=== PATIENT | female | born 1980 | race Caucasian/White ===

== ENCOUNTER 2023-10-31 11:04 | Observation (INO) ==
--- NOTE | 2023-10-31 11:21 | Emergency Department Note ---
Impression & Plan Intractable nausea and vomiting ED Provider Note Name: KENTRELL HERNANDEZ Age: 43 Sex: Female Arrives Via: Walk-In Informant: Patient ED Provider: Augusto Chamorro MD Chief Complaint: Vomiting Impression: As per impressions above Medical Decision Makin-year-old female with history of bipolar and seizure disorder arrives for evaluation of intractable nausea and vomiting. She does not have a significant amount abdominal pain or tenderness palpation. She was given Compazine Benadryl fluids and was feeling initially much better however nausea vomiting return and despite Compazine and Reglan continues to have persistent nausea and dry heaves. Eventually started developing some blood in her emesis. At this point she was given IV Protonix. Most likely these are Zully-Liz tears but in the setting of inability to control nausea vomiting development of blood she will require hospitalization. Fortunately laboratory workup is unremarkable. KUB was obtained which is reassuring. The setting of no abdominal discomfort and no peritonitis by examination would hold off on CT imaging quite at this time defer to hospitalist service. Triage/Nursing Notes reviewed by Me Differential:Gastroenteritis, food borne illness, infections, appendicitis, diverticulitis, inflammatory bowel disease, obstruction, GI bleed, biliary pathology, volvulus, as well as other pathologies. Vital Signs: reviewed and remarkable for tachycardic on arrival Interventions: Compazine IV x 2, Reglan IV, Benadryl IV x 2, normal saline bolus Labs:ED labs Reviewed by me and remarkable for no significant abnormalities Imagin view KUB as per my interpretation no evidence of obvious obstruction Consults:I discussed the case with Dr. Mark Mauro hospitalist service Plan: Disposition:Hospitalization. Condition: Good History of Present Illness: 43-year-old female arrives for evaluation of nausea and vomiting. Patient notes that she has periodic episodes of severe nausea and vomiting over the last few years. She is on a weight loss medication called Zepbound. Sometimes when she gets dehydrated she gets a bad cycle and then cannot keep down any fluids and continues vomiting. Notes diffuse abdominal cramping but primarily issue is recurrent vomiting. This started this morning. No significant symptoms otherwise. No recent fevers, chills, shortness of breath, back pain, urinary symptoms, diarrhea, blood in emesis, leg swelling, rashes or other concerning signs or symptoms. No falls, trauma, injuries. This is very similar to an episode that occurred about 6 months ago. Denies previous abdominal surgeries and is not having any significant abdominal pain other than cramping when vomiting. Past Medical History:See Below Home Medications:See Below Allergies:See Below Vitals:Blood Pressure: 116/81, Pulse 116, RR 16, T 36C, O2 98% on RA Physical Exam: GENERAL: Patient is uncomfortable/dehydrated appearing and in moderate distress. Continued dry heaving. RESPIRATORY: No dyspnea. Clear to auscultation and equal bilaterally. CARDIOVASCULAR: Tachy.No murmur appreciated. GASTROINTESTINAL: Abdomen soft, non-tender, no peritonitis. EXTREMITIES: Normal motion all extremities, no cyanosis, no edema. NEUROLOGIC: Alert and oriented. No focal neurologic deficits appreciated SKIN: No rash, no jaundice, no diaphoresis. PSYCH: Appropriate GCS: 15 ED Course: Times/Reassessments: Initially noted improvement in symptoms though rapidly worsened again and eventually decision to hospitalize given persistent symptoms Augusto Chamorro MD Past Med/Surg History Problem List (Updated 11/01/23 @ 12:05 by Augusto Chamorro MD) Intractable nausea and vomiting (Acute) Bipolar disorder Seizure disorder Medical History Grand mal seizure In 2020 - on lamotrigine. Migraines Anxiety Surgical History No pertinent past surgical history Family History Other Family history non-contributory Social History Smoking Status: Former smoker Tobacco Type: Cigarettes Cigarettes Per Day: smokes marijuana quit cigerettes in 2006; Second Hand Exposure: Yes; Do You Dip or Chew Tobacco: No; Tobacco Cessation Education Requested by Patient: No Hx Alcohol Use: Yes Alcohol type: wine and hard liquor Hx Substance Use: Yes Prescribed Medications: Marijuana Last Used Substance: Hours (ago) Last Used Substance Other:: 9-4 Preferred Language: [place] Communication Ability: Effective Match Maker Required: No Beliefs That Will Affect Care: None Current Living Situation: Alone Other Information That Helps Us Care for You: No Feels Safe at Home: Yes Safety Concerns: Feels Safe At This Time Assistive Devices: None Allergies Allergies Allergy/AdvReac Type Severity Reaction Status Date / Time ondansetron [From Zofran] Allergy Severe Long QT Unverified 10/31/23 13:33 Syndrome Bactrim Allergy Unknown Unknown. Verified 10/26/12 20:56 sulfamethoxazole [Bactrim] Allergy Unknown Unknown. Verified 10/31/23 13:33 trimethoprim [Bactrim] Allergy Unknown Unknown. Verified 10/31/23 13:33 Home Meds Home Medications Medication Instructions Recorded Confirmed sertraline 100 mg tablet 200 mg PO QAM 04/18/20 10/31/23 atorvastatin 40 mg tablet 40 mg PO QAM 07/13/23 10/31/23 biotin 5,000 mcg sublingual tablet 5,000 mcg sublingual DAILY 10/31/23 10/31/23 lamotrigine 200 mg tablet 200 mg PO BID 10/31/23 10/31/23 tirzepatide (weight loss) 2.5 2.5 mg subcut WK 10/31/23 10/31/23 mg/0.5 mL subcutaneous pen injector (Zepbound) Results & Data (ED) Vital Signs Vital Signs - 24 hr 10/31/23 15:00 Pulse Rate [Right Brachial] 89 Respiratory Rate 16 Respiratory Effort / Characteristics Non-Labored Spontaneous Respiratory Depth Normal Respiratory Pattern Regular Blood Pressure [Right Arm] 121/80 Blood Pressure Mean [Right Arm] 93 Pulse Oximetry 98 Oxygen Delivery Method Room Air Laboratory Data 11/01/23 05:43 11/01/23 05:43 Lab Results 10/31/23 10/31/23 Range/Units 11:35 13:44 WBC 7.64 (4.8-10.8) K/ul RBC 4.99 (4.20-5.40) M/uL Hgb 14.6 (12.0-16.0) g/dl Hct 43.6 (37.0-47.0) % MCV 87.4 (80.0-100.0) fL MCH 29.3 (25.0-34.0) pg MCHC 33.5 (32.0-36.0) g/dL RDW Std Deviation 41.5 (36.4-46.3) fL RDW Coeff of Mohan 12.9 (11.5-14.5) % Plt Count 257 (130-400) K/uL MPV 9.0 L (9.4-12.4) fL Immature Gran % (Auto) 0.4 % Neut % (Auto) 76.5 % Lymph % (Auto) 15.8 % Blackford % (Auto) 4.7 % Eos % (Auto) 1.8 % Baso % (Auto) 0.8 % Neut # (Auto) 5.84 (1.40-6.50) K/uL Lymph # (Auto) 1.21 (1.20-3.40) K/uL Blackford # (Auto) 0.36 (0.11-0.59) K/uL Eos # (Auto) 0.14 (0.00-0.50) K/uL Baso # (Auto) 0.06 (0.00-0.20) K/uL Immature Gran # (Auto) 0.03 (0.01-0.20) K/uL Sodium 136 (136-145) mmol/L Potassium 3.5 (3.5-5.1) mmol/L Chloride 100 (98-107) mmol/L Carbon Dioxide 22 (21-32) mmol/L Anion Gap 14 H (3-11) BUN 15 (6-23) mg/dl Creatinine 0.86 (0.6-1.2) mg/dl Est Cr Clr Drug Dosing 71.3 ml/min Est GFR ( Amer) 94.6 ml/min Est GFR (Non-Af Amer) 81.6 ml/min BUN/Creatinine Ratio 17.4 (10-20) Glucose 124 H (70-99(Fasting)) mg/dl Calcium 9.8 (8.6-10.3) mg/dl Magnesium 1.8 (1.7-2.4) mg/dl Total Bilirubin 0.5 (0.2-1.0) mg/dl Direct Bilirubin 0.1 (0-0.2) mg/dl AST 12 L (13-39) U/L ALT 7 (7-52) U/L Alkaline Phosphatase 55 (34-104) U/L Total Protein 7.5 (6.0-8.3) gm/dl Albumin 4.9 (3.4-5.0) gm/dl Lipase 13 (11-82) U/L Urine Color Yellow Urine Appearance Clear (Clear) Urine pH 5.5 (4.5-7.5) Ur Specific Strawberry 1.030 (1.000-1.030) Urine Protein Trace H (Negative) Urine Glucose (UA) Negative (Negative) Urine Ketones 2+ H (Negative) Urine Blood Negative (Negative) Urine Nitrite Negative (Negative) Urine Bilirubin Negative (Negative) Urine Urobilinogen Negative (Negative) Ur Leukocyte Esterase Negative (Negative) Urine WBC (Auto) 0-5 (0-5) /hpf Urine RBC (Auto) 0-2 (0-2) /hpf U Hyaline Cast (Auto) 3-5 H (0-2) /lpf U Epithel Cells (Auto) 0-2 (0-2) /hpf Urine Bacteria (Auto) None Seen (None Seen) Urine Mucus Present A (None Prsent) Administered Medications Acetaminophen (Acetaminophen 500 Mg Tab) 1,000 mg PO Q8H PRN PRN Reason: pain/fever Stop: 12/01/23 08:35 Last Admin: 11/01/23 08:57 Dose: 1,000 mg Documented By: ALFONSO Atorvastatin Calcium (Atorvastatin 40 Mg Tab) 40 mg PO QAM [facility] Stop: 12/01/23 08:59 Last Admin: 11/01/23 08:09 Dose: 40 mg Documented By: ALFONSO Enoxaparin Sodium (Enoxaparin Inj 40 Mg/0.4 Ml Syr) 40 mg SQ Q24H [facility] Stop: 11/30/23 19:59 Last Admin: 10/31/23 20:19 Dose: 40 mg Documented By: DAVIS Promethazine HCl (Phenergan) 6.25 mg in 50.25 mls @ 201 mls/hr IV Q4H PRN PRN Reason: Nausea And Vomiting Stop: 11/30/23 18:28 Last Infusion: 11/01/23 11:57 Dose: Infused Documented By: Admin: 11/01/23 11:38 Dose: 201 mls/hr Documented By: Infusion: 10/31/23 20:37 Dose: Infused Documented By: Admin: 10/31/23 20:19 Dose: 201 mls/hr Documented By: DAVIS Pantoprazole Sodium 40 mg/ (Syringe) 10 mls @ 5 mls/min IV DAILY@1100 [facility] Stop: 12/01/23 10:59 Last Admin: 11/01/23 10:26 Dose: 5 mls/min Documented By: ALFONSO Lamotrigine (Lamotrigine 100 Mg Tab) 200 mg PO BID [facility]; Protocol Stop: 11/30/23 20:59 Last Admin: 11/01/23 08:09 Dose: 200 mg Documented By: Admin: 10/31/23 21:23 Dose: 200 mg Documented By: DAVIS Potassium Phosphate (Pot Phosphate Monobasic W/ Sod Tab) 1 tab PO QID [facility] Stop: 12/01/23 08:59 Last Admin: 11/01/23 12:00 Dose: 1 tab Documented By: Admin: 11/01/23 08:31 Dose: 1 tab Documented By: ALFONSO Sertraline HCl (Sertraline Hcl 100 Mg Tablet) 200 mg PO QAM [facility] Stop: 12/01/23 08:59 Last Admin: 11/01/23 08:10 Dose: 200 mg Documented By: ALFONSO Discontinued Medications Diphenhydramine HCl (Diphenhydramine 50 Mg/Ml Vial) 50 mg IV NOW STA Stop: 10/31/23 11:19 Last Admin: 10/31/23 11:32 Dose: 50 mg Documented By: BHAVESH Diphenhydramine HCl (Diphenhydramine 50 Mg/Ml Vial) 25 mg IV NOW STA Stop: 10/31/23 14:07 Last Admin: 10/31/23 14:23 Dose: 25 mg Documented By: BHAVESH Prochlorperazine (Compazine) 1 mls @ 1 mls/min IV ONE ONE Stop: 10/31/23 11:19 Last Admin: 10/31/23 11:31 Dose: 1 mls/min Documented By: BHAVESH Sodium Chloride (Nss) 1,000 mls @ 999 mls/hr IV .Q1H1M ONE Stop: 10/31/23 12:18 Last Infusion: 10/31/23 13:16 Dose: Infused Documented By: Admin: 10/31/23 11:32 Dose: 999 mls/hr Documented By: BHAVESH Prochlorperazine (Compazine) 1 mls @ 1 mls/min IV ONE ONE Stop: 10/31/23 12:58 Last Admin: 10/31/23 13:07 Dose: 1 mls/min Documented By: VIK Sodium Chloride (Nss) 1,000 mls @ 999 mls/hr IV .Q1H1M ONE Stop: 10/31/23 15:06 Last Infusion: 10/31/23 15:56 Dose: Infused Documented By: Admin: 10/31/23 14:31 Dose: 999 mls/hr Documented By: BHAVESH Pantoprazole Sodium 80 mg/ (Dextrose) 120 mls @ 480 mls/hr IV ONE STA Stop: 10/31/23 15:12 Last Infusion: 10/31/23 16:12 Dose: Infused Documented By: Admin: 10/31/23 15:50 Dose: 480 mls/hr Documented By: NOA Potassium Chloride/Sodium Chloride (Normal Saline W/20 Meq Kcl) 20 meq in 1,000 mls @ 125 mls/hr IV .Q8H TORO Stop: 11/01/23 10:59 Last Infusion: 11/01/23 10:18 Dose: Infused Documented By: Admin: 11/01/23 02:46 Dose: 125 mls/hr Documented By: Infusion: 11/01/23 02:46 Dose: Infused Documented By: Admin: 10/31/23 19:04 Dose: 125 mls/hr Documented By: JEVON Metoclopramide HCl (Metoclopramide Hcl Inj 5 Mg/Ml 2 Ml Vial) 5 mg IV ONE ONE Stop: 10/31/23 14:07 Last Admin: 10/31/23 14:24 Dose: 5 mg Documented By: BHAVESH Discharge Plan Visit Data Chief Complaint: Vomiting ED Provider: Augusto Chamorro Discharge Problem: Intractable nausea and vomiting Patient Disposition: Admitted As Inpatient Discharge Instructions Interventions: ED Discharge Assessment Last Done: 10/31/23 17:33
[2023-10-31] MEDS: PROCHLORPERAZINE 1 ML IV ONE ×2 (11:31→13:07)
[2023-10-31] MEDS: SODIUM CHLORIDE 0.9% 1,000 ML IV ONE ×2 (11:32→14:31)
[2023-10-31] MEDS: diphenhydrAMINE 50 MG/ML VIAL IV STA ×2 (11:32→14:23)
[2023-10-31 11:45] LABS: Basophils # (auto) 0.06 K/uL (0.00-0.20); Basophils % (auto) 0.8 %; Eosinophils # (auto) 0.14 K/uL (0.00-0.50); Eosinophils % (auto) 1.8 %; Hematocrit (blood only) 43.6 % (37.0-47.0); Hemoglobin 14.6 g/dl (12.0-16.0); Immature Granulocytes # (auto) 0.03 K/uL (0.01-0.20); Immature Granulocytes % (auto) 0.4 %; Lymphocytes # (auto) 1.21 K/uL (1.20-3.40); Lymphocytes % (auto) 15.8 %; Mean Corpuscular Hemoglobin 29.3 pg (25.0-34.0); Mean Corpuscular Hgb Conc 33.5 g/dL (32.0-36.0); Mean Corpuscular Volume 87.4 fL (80.0-100.0); Monocytes # (auto) 0.36 K/uL (0.11-0.59); Monocytes % (auto) 4.7 %; Neutrophils # (auto) 5.84 K/uL (1.40-6.50); Neutrophils % (auto) 76.5 %; Platelet Count 257 K/uL (130-400); RDW Coefficient of Variation 12.9 % (11.5-14.5); RDW Standard Deviation 41.5 fL (36.4-46.3); Red Blood Count 4.99 M/uL (4.20-5.40); White Blood Count 7.64 K/ul (4.8-10.8)
[2023-10-31 12:02] LABS: Albumin Level 4.9 gm/dl (3.4-5.0); Bilirubin Direct 0.1 mg/dl (0-0.2); Bilirubin,Total 0.5 mg/dl (0.2-1.0); Calcium 9.8 mg/dl (8.6-10.3); Magnesium 1.8 mg/dl (1.7-2.4); Potassium 3.5 mmol/L (3.5-5.1)
[2023-10-31 12:08] LABS: BUN Creatinine Ratio 17.4 (10-20); Creatinine Clr Calc Pharmacy 71.3 ml/min; Est GFR (African American) 94.6 ml/min; Est GFR (Non-African American) 81.6 ml/min; Total Protein 7.5 gm/dl (6.0-8.3)
[2023-10-31 14:03] LABS: Appearance Urine Clear (Clear); Bacteria Urine Automated None Seen (None Seen); Bilirubin Urine Negative (Negative); Blood Urine Negative (Negative); Color Urine Yellow; Epithelial Cell Urine Auto 0-2 /hpf (0-2); Glucose Urine UA Negative (Negative); Ketones Urine 2+ (Negative); Leukocyte Esterase Urine Negative (Negative); Mucus Urine Present (None Prsent); Nitrite Urine Negative (Negative); Protein Urine Trace (Negative); RBC Urine Automated 0-2 /hpf (0-2); Urobilinogen Urine Negative (Negative); WBC Urine Automated 0-5 /hpf (0-5); pH Urine 5.5 (4.5-7.5)
[2023-10-31] MEDS: METOCLOPRAMIDE HCL INJ 5 MG/ML 2 ML VIAL IV ONE (14:24)
--- OUTSIDE RECORDS SUMMARY | 2023-10-31 14:57 | External Medical Summary | Summary of Care ---
Author Name Unknown Organization [facility] Address [address] [place] [address] Phone [phone] Care Team Providers Care Exhibitions Curator Name Role Phone Wendi Espinoza Primary Care Provider Reason for Visit * Reason Comments Follow Up Encounter Details Date Type Department Care Team (Late st Contact Info) Description 09/10/2023 7:40 AM EDT Telemedicine Family [facility] [address] [facility] [place] [place] [address] Wendi Espinoza CRNP [address] [facility] [place] [address] Class 1 obesity in adult, unspecified BMI, unspecified obesity type, unspecified whether serious comorbidity present*; Seizure-like activity (HCC); Bipolar 1 disorder (HCC); Overweight (BMI 25.0-29.9) Allergies Active Allergy Reactions Criticality Noted Date Comments Bactrim 04/28/2008 Unsure of reaction Ondansetron 05/16/2023 Prolonged QT intervals documented as of this encounter (statuses as of 09/10/2023) Medications Medication Sig Dispensed Refills Start Date End Date Status hydrOXYzine HCl 25 MG Oral TabletIndications:Bip olar 1 disorder (HCC),RAISA (generalized anxiety disorder),Social anxiety disorder Take 1-2 tablets by mouth as needed for anxiety up to 3 times a day. Do not exceed 6 tablets in 24 hours. 40 Tablet 2 04/23/2022 Active Sertraline HCl 100 MG Oral Tablet (Zoloft)Indications:B ipolar 1 disorder (HCC) Take 2 Tablets by mouth in the morning. 180 Tablet 3 05/12/2023 Active Atorvastatin Calcium 40 MG Oral Tablet (Lipitor)Indications: Dyslipidemia Take 1 Tablet by mouth in the morning. 90 Tablet 1 07/05/2023 Active lamoTRIgine 200 MG Oral Tablet (LaMICtal) Take 1 Tablet by mouth in the morning and 1 Tablet before bedtime. 60 Tablet 3 07/11/2023 Active Zepbound 2.5 MG/0.5ML Subcutaneous Solution Auto-injector (Tirzepatide-Weight Management)Indication s:Class 1 obesity in adult, unspecified BMI, unspecified obesity type, unspecified whether serious comorbidity present,Overweight (BMI 25.0-29.9) Inject 2.5 mg under the skin once a week. 2 mL 3 09/10/2023 Active documented as of this encounter (statuses as of 09/10/2023) Active Problems Problem Noted Date Diagnosed Date Class 1 obesity in adult 09/10/2023 Partial symptomatic epilepsy with complex partial seizures, not intractable, without status epilepticus 06/10/2023 Obstruction of left tear duct 11/08/2022 Seizure-like activity 05/09/2020 Trapezius muscle spasm 12/24/2017 Pain of paraspinal muscle 12/24/2017 Somatic dysfunction of thoracic region 8 Presence of intrauterine contraceptive device (I UD) 10/21/2017 Bipolar 1 disorder 08/01/2017 Migraine with aura 05/26/2008 documented as of this encounter (statuses as of 09/10/2023) Resolved Problems Problem Noted Date Diagnosed Date Resolved Date Spasm of muscle 09/04/2013 05/20/2017 Gastroenteritis 01/13/2013 09/04/2013 Neck pain 05/08/2012 05/20/2017 Bronchitis 03/17/2012 05/20/2017 Adjustment disorder with depressed mood 06/28/2010 05/20/2017 Other acne 04/18/2010 05/20/2017 Acute bronchitis, complicated 12/08/2009 03/14/2011 Mood disorder 05/26/2008 08/01/2017 documented as of this encounter (statuses as of 09/10/2023) Immunizations Name Administration Dates Next Due Seasonal Influenza, PF, 6 M & above, IM , (FluLaval or Fluzone) 12/02/2017,05/20/2017 Seasonal Influenza, Split, IIV3, With Preserve, Inj 12/11/2012,12/16/2011 TDAP (age 10 and older)(Boostrix) 12/04/2013 TDAP, Age 7 and older, IM (Adacel) 04/28/2008 documented as of this encounter Social History Tobacco Use Types Packs/Day Years Used Date Smoking Tobacco: Former Cigarettes 1 7 0 06/26/1999 - 06/25/2006 Smokeless Tobacco: Never Alcohol Use Standard Drinks/Week Comments Yes 0 (1 standard drink = 0.6 oz pur e alcohol) occasional PHQ-2 Answer Date Recorded PHQ Adult Total Score 21 04/23/2022 Hunger Vital Sign Answer Date Recorded Within the past 12 months, y ou worried that your food would run out before you got the money to buy more. Never true 06/08/19 24 Within the past 12 months, t he food you bought just didn't last and you didn't have money to get more. Never true 06/08/2023 Childcare Answer Date Recorded Do you feel overwhelmed with taking care of a child, family member or friend? No 06/08/2023 Does your family need help f inding childcare? (Household - for ages 0-17 years) Not on file 06/08/2023 Clothing Answer Date Recorded Have you been unable to get clothing when it was really needed? No 06/08/2023 Is your family able to get c lothes or diapers when needed? (Household - for ages 0-17 years) Not on file 06/08/2023 Personal Safety Answer Date Recorded Do you feel unsafe or have concerns for your saf ety? No 06/08/2023 Do you have concerns for you r family's safety? (Household - for ages 0-17 years) Not on file 06/08/2023 Utilities Answer Date Recorded Do you have trouble paying y our heating, water, or electric bill? No 06/08/2023 Is your family able to pay t he heat, water, or electric bill? (Household - for ages 0-17 years) Not on file 06/08/2023 Does your family have access to good internet? (Household - for ages 0-17 years) Not on file 06/08/2023 Employment Status Answer Date Recorded Are you unemployed or without regular income? No 06/08/2023 Does the household have a re gular source of income? (Household - for ages 0-17 years) Not on file 06/08/2023 Social Connections Answer Date Recorded How often do you feel lonely or isolated from th ose around you? Often 06/08/2023 Financial Resource Strain Answer Date R ecorded Do you have any trouble payi ng for your medications, or do you think you might in the future? No 06/08/2023 Does your family have troubl e paying for medicine? (Household - for ages 0-17 years) Not on file 06/08/2023 Transportation Needs Answer Date Record ed READ ONLY Do you have troubl e getting a ride to medical visits or work? Sometimes True 06/08/2023 Does your family have a hard time getting a ride to doctors visits? (Household - for ages 0-17 years) Not on file 06/08/2023 Has lack of transportation k ept you from medical appointments, meetings, work, or from getting things needed for daily living? Check all that apply. (Adult - for ages 18 years and over) Not on file 06/08/2023 Do you (or your family) have trouble finding or paying for a ride (transportation)? (Household - for ages 0-17 years) Not on file 06/08/2023 Housing Stability Answer Date Recorded Do you currently live in a s helter or have no steady place to sleep at night? No 06/08/2023 READ ONLY Do you think you a re at risk of becoming homeless? No 06/08/2023 Does your family worry about paying for your home or becoming homeless? (Household - for ages 0-17 years) Not on file 0 06/08/2023 Are you homeless or worried that you might be in the future? (Adult - for ages 18 years and over) Not on file Are you (or your family) jake eless or worried that you might be in the future? (Household - for ages 0-17 years) Not on file Food Insecurity Answer Date Recorded Do you need food for this week? No 06/08/2023 Are you able to get enough f ood for your family? (Household - for ages 0-17 years) Not on file 06/08/2023 Does your family need food t his week? (Household - for ages 0-17 years) Not on file 06/08/2023 Do you always have enough fo od for your family? (Household - for ages 0-17 years) Not on file 06/08/2023 Sex and Gender Information Value Date Recorded Sex Assigned at Female 04/23/2022 1:45 PM EST Gender Identity Female 04/23/2022 1:45 PM EST Sexual Orientation Straight 04/23/2022 1: 45 PM EST Job Start Date Occupation Industry Not on file Not on file Not on file documented as of this encounter Progress Notes * Wendi Espinoza CRNP - 09/10/2023 7:31 AM EDT Telemed Follow up Family Medicine Visit Patient location: HOME. I was in a hospital or clinic location. After connecting through [employer],patient was verified with two unique identifiers. Patient (or authorized legal public health representative) was then informed that this was a Telemedicine visit and being conducted confidentially over secure lines. Methods to assure confidentiality were taken. Patient acknowledged consent and understanding of pr ivacy and security of the Telemedicine visit. The patient agreed to participate. CC:follow up History of Present Illness: Jovani Daley is a 43 year old female presenting for follow up of zepbound. Currently at 149.1. Tolerating zepbound without difficulty, Since June she has had no issues. She did take 1 month off- anddid gain some weight back. Mood is stable . 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 [email or web address] Tobacco Use Smoking status: Former Current packs/day: 0.00 Average packs/day: 1 pack/day for 7.0 years (7.0 ttl pk-yrs) Types: Cigarettes Start date: 06/26/1999 Quit date: 06/25/2006 Years since quittin.2 Smokeless tobacco: Never Vaping Use Vaping status: Never Used Substance and Sexual Activity Alcohol use: Yes Comment: occasional Drug use: Yes Types: Marijuana Sexual activity: Yes Partners: Male Comment: removal 02/04/2020 of IUD Other Topics Concern Not on file Social History Narrative Not on file Social Determinants of Health Financial Resource Strain: Low Risk (06/08/2023) Financial Resource Strain Do you have any trouble paying for your medications, or do you think you might in the future? (Adult - for ages 18 years and over): No Does your family have trouble paying for medicine? (Household - for ages 0-17 years): Not on file Food Insecurity: No Food Insecurity (06/08/2023) Food Insecurity Do you need food for this week? (Adult - for ages 18 years and over): No Are you able to get enough food for your family? (Household - for ages 0-17 years): Not on file Does your family need food this week? (Household - for ages 0-17 years): Not on file Do you always have enough food for your family? (Household - for ages 0-17 years): Not on file Transportation Needs: Unmet Transportation Needs (06/08/2023) Transportation Needs Do you have trouble getting a ride to medical visits or work? (Adult - for ages 18 years and over):Sometimes True Does your family have a hard time getting a ride to doctors visits? (Household - for ages 0-17 years): Not on file Has lack of transportation kept you from medical appointments, meetings, work, or from getting things needed for daily living? Check all that apply. (Adult - for ages 18 years and over): Not on file Do you (or your family) have trouble finding or paying for a ride (transportation)? (Household - for ages 0-17 years): Not on file Social Connections: Socially Isolated (06/08/2023) Social Connections How often do you feel lonely or isolated from those around you? (Adult - for ages 18 years and over): Often Housing Stability: Low Risk (06/08/2023) Housing Stability Do you currently live in a group home or have no steady place to sleep at night? (Adult - for ages 18 years and over): No Do you think you are at risk of becoming homeless? (Adult - for ages 18 years and over): No Does your family worry about paying for your home or becoming homeless? (Household - for ages 0-17 years): Not on file Are you homeless or worried that you might be in the future? (Adult - for ages 18 years and over): Not on file Are you (or your family) homeless or worried that you might be in the future? (Household - for ages0-17 years): Not on file PMH: Past Medical History: Diagnosis Date Hypoglycemia in past low/labile BS Migraine Mood disorder (HCC) bipolar Past Surgical History: Procedure Laterality Date DENTAL SURGERY PROCEDURE NEC wisdom teeth LEVONORGESTREL RELEASING IUD 13.5 MG 08/26/2017 Current Outpatient Medications Medication Sig Dispense Refill lamoTRIgine 200 MG Oral Tablet (LaMICtal) Take 1 Tablet by mouth in the morning and 1 Tablet beforebedtime. 60 Tablet 3 Atorvastatin Calcium 40 MG Oral Tablet (Lipitor) Take 1 Tablet by mouth in the morning. 90 Tablet 1 Sertraline HCl 100 MG Oral Tablet (Zoloft) Take 2 Tablets by mouth in the morning. 180 Tablet 3 hydrOXYzine HCl 25 MG Oral Tablet Take 1-2 tablets by mouth as needed for anxiety up to 3 times a day. Do not exceed 6 tablets in 24 hours. 40 Tablet 2 No current facility-administered medications for this visit. Review of patient's allergies indicates: Allergen Reactions Bactrim Unsure of reaction Zofran [Ondansetron] Prolonged QT intervals Most Recent Immunizations Administered Date(s) Administered COVID-19 mRNA, LNP-s, No Preserve, 2-Dose Series (about.me) 06/01/2020 Seasonal Influenza, PF, 6 M & above, IM , (FluLaval or Fluzone) 12/02/2017 Seasonal Influenza, Split, IIV3, With Preserve, Inj 12/11/2012 TDAP (age 10 and older)(Boostrix) 12/04/2013 TDAP, Age 7 and older, IM (Adacel) 04/28/2008 Review of Systems: Review of Systems Respiratory: Negative for shortness of breath. Cardiovascular: Negative for chest pain. Gastrointestinal: Negative for abdominal pain, diarrhea, nausea and vomiting. Neurological: Positive for seizures. Negative for dizziness and syncope. Psychiatric/Behavioral: Negative for sleep disturbance. Mood stable Physical Exam: There were no vitals taken for this visit. Physical Exam HENT: Head: Normocephalic. Pulmonary: Effort: Pulmonary effort is normal. Neurological: General: No focal deficit present. Mental Status: She is alert and oriented to person, place, and time. Psychiatric: Mood and Affect: Mood normal. Behavior: Behavior normal. Thought Content: Thought content normal. Judgment: Judgment normal. Assessment and Plan: 1. Class 1 obesity in adult, unspecified BMI, unspecified obesity type, unspecified whether seriouscomorbidity present Bmi now less than 30. Tolerating zepbound- continue 2. Seizure-like activity (HCC) Managed by neuro 3. Bipolar 1 disorder (HCC) Stable per her report I have advised the patient to call our office incase of any worsening or new symptoms. I spent a total of 20-29 minutes (exact time 20 mins) on the date of service in preparation, delivery, and documentation of the care provided to Jovani Daley excluding any time spent in the performance of separately billed services. [place], AN, RUMA [facility]'s documented in this encounter Plan of Treatment Upcoming Encounters Date Type Department Care Team (Late st Contact Info) Description 10/03/2023 8:40 AM EDT Office Visit Neurology [facility] [address] [place] [address] Blanka Vizcaino PA-C [address] [facility] [place] [address] 04/20/2024 9:30 AM EST Imaging Radiology [address] [facility] [place] [address] Health Maintenance Due Date Last Done Comments Hepatitis B Vaccine (1 of 3 - 19+ 3-dose series) 1997 HPV/Co-Test 2008 Cervical Cancer Screening 08/01/2020 Pap Smear 08/01/2020 08/01/2017, 08/2017, 01/18/2012, Additional history exists Depression Monitoring 04/23/2023 04/23/2022 Cologuard 05/28/2023 Colonoscopy 05/28/2023 Colorectal Cancer Screening 05/28/2023 Fecal Occult Blood Test 05/28/2023 Sigmoidoscopy 05/28/2023 Influenza Vaccine (FLU shot) (#1) 2023 12/02/2017, 05/20/2017, 12/11/2012, Additional history exists DTaP,Tdap,and Td Vaccines (3 - Td or Tdap) 12/05/2023 12/04/2013, 04/28/2008 Mammogram 04/17/2024 04/17/2023 Diabetes Screening 07/17/2026 07/18/2023, 0 07/18/2023, 06/10/2023, Additional history exists Lipid Panel 06/09/2028 06/10/2023, 05/01/2008 COVID-19 Vaccine Completed 12/06/2022, 08/2020, 05/11/2020 HIV Screening Discontinued HPV (Gardasil) Vaccine Aged Out No lo nger eligible based on patient's age to complete this topic Hepatitis C Screening Discontinued MENINGOCOCCAL (MENACTRA/MENVEO) Aged Out No longer eligible based on patient's age to complete this topic Pneumococcal Vaccine: Pediatrics (0 to 5 Years) and At-Risk Patients (6 to 64 Years) Aged Out No longer eligible based on patient's age to complete this topic documented as of this encounter Medical Devices Not on filedocumented as of this encounter Visit Diagnoses Diagnosis Class 1 obesity in adult, unspecified BMI, unspecified obesity type, unspecified whether serious comorbidity present- Primary Seizure-like activity (HCC) Other convulsions Bipolar 1 disorder (HCC) Bipolar I disorder, most recent episode (or current) unspecified Overweight (BMI 25.0-29.9) Overweight documented in this encounter Care Teams Exhibitions Curator Relationship Specialty Start Date End Date Wendi Espinoza CRNP [address] [place] [address] PCP - General Nurse Practitioner 09/06/23 documented as of this encounter
--- OUTSIDE RECORDS SUMMARY | 2023-10-31 14:57 | External Medical Summary ---
Author Name Unknown Address Unknown Organization [id number]:[facility] [place] [address] [place] [address] Laboratory Report Ordering Provider Test Date Status PHIL LEYVALima 07/18/2023 12:28:35 Final Observation Date Value Abnormality Reference (Units ) Status MYCODE SPECIMEN-SST 07/18/2023 12:28:35 Freezing of extracted DNA, whole blood and/or serum. Final Performing Location [facility] [place] [address] [place] [address]
--- OUTSIDE RECORDS SUMMARY | 2023-10-31 14:57 | External Medical Summary ---
Author Name Unknown Address Unknown Organization [id number][facility] [address] [place] [address] Laboratory Report Ordering Provider Test Date Status LOIS LEON 07/18/2023 12:28:35 Final Observation Date Value Abnormality Reference (Units ) Status BUN 07/18/2023 12:28:35 11 6-20 (mg/dL) Final Creatinine 07/18/2023 12:28:35 0.9 0.5-1.0 (mg/dL) Final Glomerular filtration rate/1.73 sq M.predicted [Volume Rate/Area] in Serum, Plasma or Blood by Creatinine-based formula (CKD-EPI) 07/18/2023 12:28:35 85 >=60 (mL/min) Final eGFR is calculated based on the CKD-EPI 2020 equation Sodium 07/18/2023 12:28:35 141 135-146 (m mol/L) Final Potassium 07/18/2023 12:28:35 3.7 3.5-5.1 (m mol/L) Final Cl 07/18/2023 12:28:35 100 98-107 (mm ol/L) Final CO2 07/18/2023 12:28:35 29 22-32 (mmo l/L) Final Anion gap 07/18/2023 12:28:35 12 7-15 (mmol /L) Final Glucose 07/18/2023 12:28:35 77 70-120 (mg /dL) Final Calcium 07/18/2023 12:28:35 9.7 8.4-10.2 ( mg/dL) Final Performing Location [facility] - [address] [place] [address]
--- OUTSIDE RECORDS SUMMARY | 2023-10-31 14:57 | External Medical Summary | Summary of Care ---
Author Name Unknown Organization [facility] Address [address] [place] [address] Phone [phone] Care Team Providers Care Dimension Quarry Supervisor Name Role Phone Wale Collier DO Primary Care Provider Reason for Visit * Reason Comments Emergency Department Follow-Up 07/12 er V ISIT DEHYDRATION, FROM ZEPBOUND. STOPPED MED.CT FOUND CYST ON KIDNEY, SO NOT SURE IF SHE NEEDS TO FOLLOW UP TO THAT. Encounter Details Date Type Department Care Team (Late st Contact Info) Description 07/18/2023 10:40 AM EDT Office Visit Family Practice [facility] [address] [place] [address] Wendi Espinoza CRNP [address] [place] [address] Cyst of right kidney*; Urinary frequency; Hypokalemia; Leukocytosis, unspecified type; Nausea and vomiting, unspecified vomiting type Allergies Active Allergy Reactions Criticality Noted Date Comments Bactrim 04/28/2008 Unsure of reaction Ondansetron 05/16/2023 Prolonged QT intervals documented as of this encounter (statuses as of 07/18/2023) Medications Medication Sig Dispensed Refills Start Date End Date Status hydrOXYzine HCl 25 MG Oral TabletIndications: Bipolar 1 disorder (HCC),RAISA (generalized anxiety disorder),Social anxiety disorder Take 1-2 tablets by mouth as needed for anxiety up to 3 times a day. Do not exceed 6 tablets in 24 hours. 40 Tablet 2 04/23/2022 Active Zepbound 2.5 MG/0.5ML Subcutaneous Solution Auto-injector (Tirzepatide-Weigh t Management)Indicat ions:Overweight (BMI 25.0-29.9) Inject 2.5 mg under the skin once a week. 2 mL 3 04/17/2023 Active Additional Information Patient not taking.Reported on 07/18/2023 Sertraline HCl 100 MG Oral Tablet (Zoloft)Indication s:Bipolar 1 disorder (HCC) Take 2 Tablets by mouth in the morning. 180 Tablet 3 05/12/2023 Active Atorvastatin Calcium 40 MG Oral Tablet (Lipitor)Indicatio ns:Dyslipidemia Take 1 Tablet by mouth in the morning. 90 Tablet 1 07/05/2023 Active lamoTRIgine 200 MG Oral Tablet (LaMICtal) Take 1 Tablet by mouth in the morning and 1 Tablet before bedtime. 60 Tablet 3 07/11/2023 Active lamoTRIgine 200 MG Oral Tablet (LaMICtal) TAKE 1.5 TABLET BY MOUTH TWICE A DAY 180 Tablet 1 06/27/2023 4 Discontinue d(Medicatio n List Clean Up) lamoTRIgine 100 MG Oral Tablet (LaMICtal) Take 1 Tablet by mouth in the morning and 1 Tablet before bedtime. 60 Tablet 3 07/11/2023 4 Discontinue d(Medicatio n List Clean Up) documented as of this encounter (statuses as of 07/18/2023) Active Problems Problem Noted Date Diagnosed Date Partial symptomatic epilepsy with complex partial seizures, not intractable, without status epilepticus 06/10/2023 Obstruction of left tear duct 11/08/2022 Seizure-like activity 05/09/2020 Trapezius muscle spasm 12/24/2017 Pain of paraspinal muscle 12/24/2017 Somatic dysfunction of thoracic region 8 Presence of intrauterine contraceptive device (I UD) 10/21/2017 Bipolar 1 disorder 08/01/2017 Migraine with aura 05/26/2008 documented as of this encounter (statuses as of 07/18/2023) Resolved Problems Problem Noted Date Diagnosed Date Resolved Date Spasm of muscle 09/04/2013 05/20/2017 Gastroenteritis 01/13/2013 09/04/2013 Neck pain 05/08/2012 05/20/2017 Bronchitis 03/17/2012 05/20/2017 Adjustment disorder with depressed mood 06/28/2010 05/20/2017 Other acne 04/18/2010 05/20/2017 Acute bronchitis, complicated 12/08/2009 03/14/2011 Mood disorder 05/26/2008 08/01/2017 documented as of this encounter (statuses as of 07/18/2023) Immunizations Name Administration Dates Next Due Seasonal Influenza, PF, 6 M & above, IM , (FluLaval or Fluzone) 12/02/2017,05/20/2017 Seasonal Influenza, Split, IIV3, With Preserve, Inj 12/11/2012,12/16/2011 TDAP (age 10 and older)(Boostrix) 12/04/2013 TDAP (age 11 and older)(Adacel) 04/28/2008 documented as of this encounter Social [...] money to get more. Never true 06/08/2023 Sex and Gender Information Value Date Recorded Sex Assigned at Female 04/23/2022 1:45 PM EST Gender Identity Female 04/23/2022 1:45 PM EST Sexual Orientation Straight 04/23/2022 1: 45 PM EST Job Start Date Occupation Industry Not on file Not on file Not on file documented as of this encounter Last Filed Vital Signs Vital Sign Reading Time Taken Comments Blood Pressure 102/60 07/18/2023 10:34 AM EDT Pulse 89 07/18/2023 10:34 AM EDT Temperature - - Respiratory Rate - - Oxygen Saturation - - Inhaled Oxygen Concentration - - Weight 70 kg (154 lb 5 oz) 07/18/2023 10:34 AM E DT Height - - Body Mass Index 27.34 04/17/2023 8:52 AM EST documented in this encounter Progress Notes * Wendi Espinoza, RUMA - 07/18/2023 10:37 AM EDT Follow up Family Medicine Visit CC: Chief Complaint Patient presents with Emergency Department Follow-Up 07/12 er VISIT DEHYDRATION, FROM ZEPBOUND. STOPPED MED. CT FOUND CYST ON KIDNEY, SO NOT SURE IF SHE NEEDS TO FOLLOW UP TO THAT. History of Present Illness: Jovani Daley is a 43 year old female presenting FOR er FOLLOW UP. She was seen at [facility] on 07/13/2023 She was seen for nausea and vomiting. She associated with zepbound so she stopped and felt fine since then. Tolerating PO intake, No further symptoms Incidental kidney cyst noted. 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 [email or web address] Tobacco Use Smoking status: Former Current packs/day: 0.00 Average packs/day: 1 pack/day for 7.0 years (7.0 ttl pk-yrs) Types: Cigarettes Start date: 06/26/1999 Quit date: 06/25/2006 Years since quittin.0 Smokeless tobacco: Never Vaping Use Vaping status: Never Used Substance and Sexual Activity Alcohol use: Yes Comment: occasional Drug use: Yes Types: Marijuana Sexual activity: Yes Partners: Male Comment: removal 02/04/2020 of IUD Other Topics Concern Not on file Social History Narrative Not on file Social Determinants of Health Financial Resource Strain: Not on file Food Insecurity: No Food Insecurity (06/08/2023) Hunger Vital Sign Worried About Running Out of Food in the Last Year: Never true Ran Out of Food in the Last Year: Never true Transportation Needs: Not on file Physical Activity: Not on file Stress: Not on file Social Connections: Not on file Intimate Partner Violence: Not on file Housing Stability: Not on file PMH: Past Medical History: [...] tablets in 24 hours. 40 Tablet 2 Zepbound 2.5 MG/0.5ML Subcutaneous Solution Auto-injector (Tirzepatide-Weight Management) Inject 2.5 mg under the skin once a week. (Patient not taking: Reported on 07/18/2023) 2 mL 3 No current facility-administered medications for this visit. Review of patient's allergies indicates: Allergen Reactions Bactrim Unsure of reaction Zofran [Ondansetron] Prolonged QT intervals Most Recent Immunizations Administered Date(s) Administered COVID-19 mRNA, LNP-s, No Preserve, 2-Dose Series (Mister Spex) 06/01/2020 Seasonal Influenza, PF, 6 M & above, IM , (FluLaval or Fluzone) 12/02/2017 Seasonal Influenza, Split, IIV3, With Preserve, Inj 12/11/2012 TDAP (age 10 and older)(Boostrix) 12/04/2013 TDAP (age 11 and older)(Adacel) 04/28/2008 Review of Systems: Review of Systems Constitutional: Negative for chills, diaphoresis, fatigue and fever. Respiratory: Negative for shortness of breath. Cardiovascular: Negative for chest pain. Gastrointestinal: Positive for diarrhea, nausea and vomiting. Now resolved Physical Exam: BP 102/60 | Pulse 89 | Wt 70 kg (154 lb 5 oz) | BMI 27.34 kg/m | BSA 1.76 m Physical Exam HENT: Head: Normocephalic. Cardiovascular: Rate and Rhythm: Normal rate and regular rhythm. Pulmonary: Effort: Pulmonary effort is normal. Abdominal: Palpations: Abdomen is soft. Tenderness: There is no abdominal tenderness. Neurological: General: No focal deficit present. Mental Status: She is alert and oriented to person, place, and time. Psychiatric: Mood and Affect: Mood normal. Behavior: Behavior normal. Thought Content: Thought content normal. Judgment: Judgment normal. Assessment and Plan: 1. Cyst of right kidney Noted on CT in ED Check ultrasound - US RENAL; Future 2. Urinary frequency Ongoing for months Recent urine in ed normal. - US RENAL; Future - HEMOGLOBIN A1C; Future 3. Hypokalemia recheck - BASIC METABOLIC PANEL; Future 4. Leukocytosis, unspecified type recheck - CBC WITH WBC DIFFERENTIAL; Future 5. Nausea and vomiting, unspecified vomiting type RESOLVED NOW SUSPECTED VIRAL GASTROENTERITIS PATIENT TOOK ZEPBOUND 6 DAYS BEFORE AND HAD NO ISSUES SHE IS HOLDING ZEPBOUND FOR NOW I have advised the patient to call our office incase of any worsening or new symptoms. I spent a total of 30-39 minutes (exact time 30 mins) on the date of service in preparation, delivery, and documentation of the care provided to Jovani Daley excluding any time spent in the performance of separately billed services. AN Mera, RUMA [facility] Family Medicine documented in this encounter Plan of Treatment Upcoming Encounters Date Type Department Care Team (Late st Contact Info) Description 07/18/2023 12:00 PM EDT Imaging Radiology [address] [place] [address] 08/05/2023 12:30 PM EDT NeuroDiagnostic Study Neurophysiology [facility] [place] [address] [place] [address] [address] Sp, Neurophys Tech [address] [place] [address] [address] 08/08/2023 9:00 AM EDT NeuroDiagnostic Study Neurophysiology [facility] [place] [address] [place] [address] [address] Sp, Neurophys Tech [address] [place] [address] [address] 08/20/2023 11:40 AM EDT Office Visit Nutrition & Weight Management, [facility] [place] [address] Sheridan Davison PA-C [address] [place] [address] 10/03/2023 8:40 AM EDT Office Visit Neurology [facility] [address] [place] [address] Blanka Vizcaino PA-C [address] [place] [address] 04/20/2024 9:30 AM EST Imaging Radiology [address] [place] [address] Scheduled Orders Name Type Priority Associated Diagnoses Orde r Schedule US RENAL Medical Imaging Routine Cyst of right kidney Urinary frequency Expected: 07/18/2023, Expires: 08/17/2024 CBC WITH WBC DIFFERENTIAL Lab Routine Leukocytosis, unspecified type Expected: 07/18/2023, Expires: 08/17/2024 BASIC METABOLIC PANEL Lab Routine Hypokalemia Expected: 07/18/2023 (Approximate), Expires: 07/17/2024 HEMOGLOBIN A1C Lab Routine Urinary frequency Expected: 07/18/2023 (Approximate), Expires: 07/17/2024 Health Maintenance Due Date Last Done Comments Hepatitis B (1 of 3 - 19+ 3-dose series) 1997 HPV/Co-Test 2008 Cervical Cancer Screening 08/01/2020 Pap Smear 08/01/2020 08/01/2017, 08/2017, 01/18/2012, Additional history exists Depression, Most Recent Score >= 10 (will fire each visit until score < 10) 04/24/2022 04/23/2022 COVID-19 Vaccine ( season) 2022 06/01/2020, 05/11/2020 Cologuard 05/28/2023 Colonoscopy 05/28/2023 Colorectal Cancer Screening 05/28/2023 Fecal Occult Blood Test 05/28/2023 Sigmoidoscopy 05/28/2023 Influenza Vaccine (FLU shot) (Season Ended) 2023 12/02/2017, 05/20/2017, 12/11/2012, Additional history exists DTaP,Tdap,and Td Vaccines (3 - Td or Tdap) 12/05/2023 12/04/2013, 04/28/2008 Mammogram 04/17/2024 04/17/2023 Diabetes Screening 06/09/2026 06/10/2023, 0 05/20/2017, 06/17/2014, Additional history exists Lipid Panel 06/09/2028 06/10/2023, 05/01/2008 GARDASIL-HPV IMMUNIZATION SERIES Aged Out No longer eligible based on patient's age to complete this topic HIV Screening Discontinued Hepatitis C Screening Discontinued MENINGOCOCCAL (MENACTRA/MENVEO) Aged Out No longer eligible based on patient's age to complete this topic Pneumococcal Vaccine: Pediatrics (0 to 5 Years) and At-Risk Patients (6 to 64 Years) Aged Out No longer eligible based on patient's age to complete this topic documented as of this encounter Medical Devices Not on filedocumented as of this encounter Visit Diagnoses Diagnosis Cyst of right kidney- Primary Unspecified congenital cystic kidney disease Urinary frequency Hypokalemia Hypopotassemia Leukocytosis, unspecified type Nausea and vomiting, unspecified vomiting type documented in this encounter Care Teams Dimension Quarry Supervisor Relationship Specialty Start Date End Date Wale Collier DO [address] [place] [address] PCP - General Family Medicine 10/21/17 documented as of this encounter"
--- OUTSIDE RECORDS SUMMARY | 2023-10-31 14:57 | External Medical Summary | Summary of Care ---
Author Name Unknown Organization [facility] Address [address] [place] [address] Phone [phone] Care Team Providers Care Aircraft Tool Maker Name Role Phone Nando Wale Sainzfatoumata Primary Care Provider Encounter Details Date Type Department Care Team (Late st Contact Info) Description 07/15/2023 Orders Only Outcomes Research Department [address] [place] [address] Haylee River [employer]RA [employer] Other*[id number] Allergies Active Allergy Reactions Criticality Noted Date Comments Bactrim 04/28/2008 Unsure of reaction Ondansetron 05/16/2023 Prolonged QT intervals documented as of this encounter (statuses as of 07/15/2023) Medications Medication Sig Dispensed Refills Start Date End Date Status hydrOXYzine HCl 25 MG Oral TabletIndications:Bip olar 1 disorder (HCC),RAISA (generalized anxiety disorder),Social anxiety disorder Take 1-2 tablets by mouth as needed for anxiety up to 3 times a day. Do not exceed 6 tablets in 24 hours. 40 Tablet 2 04/23/2022 Active Zepbound 2.5 MG/0.5ML Subcutaneous Solution Auto-injector (Tirzepatide-Weight Management)Indication s:Overweight (BMI 25.0-29.9) Inject 2.5 mg under the skin once a week. 2 mL 3 04/17/2023 Active Sertraline HCl 100 MG Oral Tablet (Zoloft)Indications:B ipolar 1 disorder (HCC) Take 2 Tablets by mouth in the morning. 180 Tablet 3 05/12/2023 Active lamoTRIgine 200 MG Oral Tablet (LaMICtal) TAKE 1.5 TABLET BY MOUTH TWICE A DAY 180 Tablet 1 06/27/2023 Active Atorvastatin Calcium 40 MG Oral Tablet (Lipitor)Indications: Dyslipidemia Take 1 Tablet by mouth in the morning. 90 Tablet 1 07/05/2023 Active lamoTRIgine 200 MG Oral Tablet (LaMICtal) Take 1 Tablet by mouth in the morning and 1 Tablet before bedtime. 60 Tablet 3 07/11/2023 Active lamoTRIgine 100 MG Oral Tablet (LaMICtal) Take 1 Tablet by mouth in the morning and 1 Tablet before bedtime. 60 Tablet 3 07/11/2023 Active documented as of this encounter (statuses as of 07/15/2023) Active Problems Problem Noted Date Diagnosed Date [...] as of this encounter (statuses as of 07/15/2023) Resolved Problems Problem Noted Date Diagnosed Date Resolved Date Spasm of muscle 09/04/2013 05/20/2017 Gastroenteritis 01/13/2013 09/04/2013 Neck pain 05/08/2012 05/20/2017 Bronchitis 03/17/2012 05/20/2017 Adjustment disorder with depressed mood 06/28/2010 05/20/2017 Other acne 04/18/2010 05/20/2017 Acute bronchitis, complicated 12/08/2009 03/14/2011 Mood disorder 05/26/2008 08/01/2017 documented as of this encounter (statuses as of 07/15/2023) Immunizations Name Administration Dates Next Due Seasonal [...] on file documented as of this encounter Plan of Treatment Upcoming Encounters Date Type Department Care Team (Late st Contact Info) Description 08/05/2023 12:30 PM EDT NeuroDiagnostic Study Neurophysiology [facility] [address] [place] [address] Sp, Neurophys Tech [address] [place] [address] 08/08/2023 9:00 AM EDT NeuroDiagnostic Study Neurophysiology [facility] [address] [place] [address] Sp, Neurophys Tech [address] [place] [address] 08/20/2023 11:40 AM EDT Office Visit Nutrition & Weight Management, [facility] [address] [place] [address] Sheridan Davison PA-C [address] [place] [address] 10/03/2023 8:40 AM EDT Office Visit Neurology [facility] [address] [place] [address] Blanka Vizcaino PA-C [address] [place] [address] 04/20/2024 9:30 AM EST Imaging Radiology [facility] [address] [facility] [address] [place] [address] Scheduled Orders Name Type Priority Associated Diagnoses Orde r Schedule MYCODE SUBSEQUENT ADULT Lab Routine [employer] Other*[id number] Every 6 Months for 2 Occurrences starting 07/15/2023 until 08/03/2024 Health Maintenance Due Date Last Done Comments [...] as of this encounter Visit Diagnoses Diagnosis [employer] Other*[id number] documented in this encounter Care Teams Aircraft Tool Maker Relationship Specialty Start Date End Date Wale Collier DO [address] [place] [address] PCP - General Family Medicine 10/21/17 documented as of this encounter
--- OUTSIDE RECORDS SUMMARY | 2023-10-31 14:57 | External Medical Summary ---
Author Name Unknown Address Unknown Organization [id number]:LAB[facility]ATORY [facility] - [address] [place] [address] Laboratory Report Ordering Provider Test Date Status LOIS LEON 07/18/2023 12:28:35 Final Observation Date Value Abnormality Reference (Units ) Status SYNC LEUKOCYTES IN BLOOD BY AUTOMATED COUNT 07/18/2023 12:28:35 7.02 4.00-10.80 (K/uL) Final Segs 07/18/2023 12:28:35 61.1 40.0-75.0 (%) Final Lymphs % 07/18/2023 12:28:35 25.5 18.0-42.0 (%) Final Monos 07/18/2023 12:28:35 6.8 1.0-11.0 (%) Final Eosinophils 07/18/2023 12:28:35 6.0 0.0-6.0 (%) Final Basos 07/18/2023 12:28:35 0.6 0.0-2.0 (%) Final Absolute Segs 07/18/2023 12:28:35 4.29 1.80-7.70 (K/uL) Final Lymphs, absolute 07/18/2023 12:28:35 1.79 1.00-4.80 (K/ul) Final Monos, Abs 07/18/2023 12:28:35 0.48 0.00-1.10 (K/uL) Final Eos, Abs 07/18/2023 12:28:35 0.42 0.00-0.70 (K/uL) Final Basos, Abs 07/18/2023 12:28:35 0.04 0.00-0.20 (K/uL) Final [facility] Location [facility] [address] [place] [address]
--- OUTSIDE RECORDS SUMMARY | 2023-10-31 14:57 | External Medical Summary ---
Author Name Unknown Address Unknown Organization [id number]:LABORATORY [facility] - [address] [place] [address] Laboratory Report Ordering Provider Test Date Status PHIL LEYVALima 07/18/2023 12:28:35 Final Observation Date Value Abnormality Reference (Units ) Status MYCODE SPECIMEN-SST 07/18/2023 12:28:35 Freezing of extracted DNA, whole blood and/or serum. Final Performing Location LABORATORY [facility] - [address] [place] [address]
--- OUTSIDE RECORDS SUMMARY | 2023-10-31 14:57 | External Medical Summary | Summary of Care ---
Author Name Unknown Organization [facility] Address [address] [place] [address] Phone [phone] Care Team Providers Care Public Employment Mediator Name Role Phone Wale Collier DO Primary Care Provider Reason for Visit * Reason Comments Outpatient Testing Encounter Details Date Type Department Care Team (Late st Contact Info) Description 07/18/2023 12:50 PM EDT Laboratory Laboratory, [facility] [address] [place] [address] [facility] [address] [place] [address] [employer] Other*[id number]; Leukocytosis, unspecified type; Hypokalemia; Urinary frequency Allergies Active Allergy Reactions Criticality Noted Date Comments Bactrim 04/28/2008 Unsure of reaction Ondansetron 05/16/2023 Prolonged QT intervals documented as of this encounter (statuses as of 07/18/2023) Medications Medication Sig Dispensed Refills Start Date End Date Status hydrOXYzine HCl 25 MG Oral TabletIndications:B ipolar 1 disorder (HCC),RAISA (generalized anxiety disorder),Social anxiety disorder Take 1-2 tablets by mouth as needed for anxiety up to 3 times a day. Do not exceed 6 tablets in 24 hours. 40 Tablet 2 04/23/2022 Active Zepbound 2.5 MG/0.5ML Subcutaneous Solution Auto-injector (Tirzepatide-Weight Management)Indicati ons:Overweight (BMI 25.0-29.9) Inject 2.5 mg under the skin once a week. 2 mL 3 04/17/2023 Active Additional Information Patient not taking.Reported on 07/18/2023 Sertraline HCl 100 MG Oral Tablet (Zoloft)Indications :Bipolar 1 disorder (HCC) Take 2 Tablets by mouth in the morning. 180 Tablet 3 05/12/2023 Active Atorvastatin Calcium 40 MG Oral Tablet (Lipitor)Indication s:Dyslipidemia Take 1 Tablet by mouth in the [...] 08/05/2023 12:30 PM EDT NeuroDiagnostic Study Neurophysiology [facility] [address] [place] [address] Sp, Neurophys Tech [address] [place] [address] 08/08/2023 9:00 AM EDT NeuroDiagnostic Study Neurophysiology [facility] [address] [place] [address] Sp, Neurophys Tech [address] [place] [address] 08/20/2023 11:40 AM EDT Office Visit Nutrition & Weight Management, [facility] [address] [place] [address] Sheridan Davison PA-C [address] [place] [address] 10/03/2023 8:40 AM EDT Office Visit Neurology [facility] [address] [place] [address] Blanka Vizcaino PA-C [address] [place] [address] 04/20/2024 9:30 AM EST Imaging Radiology [facility]st [facility] [place] [address] [facility] [place] [address] Pending Results Name Type Priority Associated Diagnoses Date /Time MYCODE SUBSEQUENT ADULT Lab Routine [employer] Other*[id number] 07/18/2023 12:28 PM EDT CBC WITH WBC DIFFERENTIAL Lab Routine Leukocytosis, unspecified type 07/18/2023 12:28 PM EDT BASIC METABOLIC PANEL Lab Routine Hypokalemia 07/18/2023 12:28 PM EDT HEMOGLOBIN A1C Lab Routine Urinary frequency 07/18/2023 12:28 PM EDT MYCODE SST1 Lab Routine [employer] Other*[id number] 07/18/2023 12:28 PM EDT MYCODE SST2 Lab Routine [employer] Other*[id number] 07/18/2023 12:28 PM EDT CBC Lab Routine Leukocytosis, unspecified type 07/18/2023 12:28 PM EDT DIFFERENTIAL, AUTOMATED Lab Routine Leukocytosis, unspecified type 07/18/2023 12:28 PM EDT Health Maintenance Due Date Last Done Comments Hepatitis B (1 of 3 - 19+ 3-dose series) 1997 HPV/Co-Test 2008 Cervical Cancer Screening 08/01/2020 Pap Smear 08/01/2020 08/01/2017, 08/2017, 01/18/2012, Additional history exists Depression, Most Recent Score >= 10 (will fire each visit until score < 10) 04/24/2022 04/23/2022 COVID-19 Vaccine ( season) 2022 12/06/2022, 06/01/2020, 05/11/2020 Cologuard 05/28/2023 Colonoscopy 05/28/2023 Colorectal [...] this encounter Visit Diagnoses Diagnosis [employer] Other*[id number] Leukocytosis, unspecified type Hypokalemia Hypopotassemia Urinary frequency documented in this encounter Care Teams Public Employment Mediator Relationship Specialty Start Date End Date Wale Collier DO [address] [place] [address] PCP - General Family Medicine 10/21/17 documented as of this encounter
--- OUTSIDE RECORDS SUMMARY | 2023-10-31 14:57 | External Medical Summary ---
Author Name Unknown Address Unknown Organization K01:LAB[facility]ATORY [facility] - [address] [place] [address] Laboratory Report Ordering Provider Test Date Status LOIS LEON 07/18/2023 12:28:35 Final Observation Date Value Abnormality Reference (Units ) Status HbA1C 07/18/2023 12:28:35 5.1 4.0-5.6 (% ) Final The use of HbA1c to monitor glycemic status is based on normal hemoglobin and HbA composition. This test should not be used in patients with abnormal hemoglobin that affects the half life of the red blood cell or the in vivo glycation rates. Glucose, estimated average 07/18/2023 12:28:35 100 <126 (mg/dL) Final Performing Location [facility] [address] [facility] [address]
--- OUTSIDE RECORDS SUMMARY | 2023-10-31 14:57 | External Medical Summary ---
Author Name Unknown Address Unknown Organization [id number]:[facility] [address] [place] [id number] Laboratory Report Ordering Provider Test Date Status LOIS LEON 07/18/2023 12:28:35 Final Observation Date Value Abnormality Reference (Units ) Status WBC, Total 07/18/2023 12:28:35 7.02 4.00-10.8 0 (K/uL) Final RBC 07/18/2023 12:28:35 4.52 3.85-5.15 (M/uL) Final Hemoglobin 07/18/2023 12:28:35 13.7 12.0-15.3 (g/dL) Final HCT 07/18/2023 12:28:35 41.3 36.0-45.2 (%) Final MCV 07/18/2023 12:28:35 91.4 81.5-97.5 (fL) Final MCH 07/18/2023 12:28:35 30.3 27.0-34.0 (pg) Final MCHC 07/18/2023 12:28:35 33.2 32.0-36.0 (g/dL) Final RDW 07/18/2023 12:28:35 13.4 11.5-15.5 (%) Final Platelets 07/18/2023 12:28:35 228 140-400 (K /uL) Final MPV 07/18/2023 12:28:35 10.3 6.6-11.1 ( fL) Final Performing Location [facility] [address] [place] [id number]
--- NOTE | 2023-10-31 15:22 | XRay Report ---
KUB HISTORY: Acute nausea with vomiting persistent emesis COMPARISON: CT 07/13/2023 FINDINGS: Nonobstructive bowel gas pattern. No renal calculi. No ureteral calculi. No pneumoperitone um or pneumatosis. No fracture. IMPRESSION: Nonobstructive bowel gas pattern. ACT 112: Negative or not required by law. The above report was generated using voice recognition software. It may contain grammatical, syntax o r spelling errors. Electronically signed by: Santosh Pastor M.D. 10/31/2023 3:20 PM
[2023-10-31] MEDS: PANTOprazole 80 MG in DEXTROSE 5% 100 ML IV STA (15:50)
--- NOTE | 2023-10-31 16:11 | History & Physical Report ---
Date of Service October 31, 2023 Assessment & Plan (1) Intractable nausea and vomiting: Plan Jovani Daley is a 43y/o F with PMHx of migraine with aura, bipolar I disorder, seizure disorder and other problems listed below who presented to the ED for evaluation secondary to intractable nausea and vomiting. S/p the following in the ED: 2L NSS, IV Protonix bolus, 75mg IV Benadryl, 5mg IV metoclopramide and IV Compazine x 2. Intractable Nausea/Vomiting: History as per HPI and above. Labs rather unremarkable. UA negative for infection. Urine tox screen pending. Clear liquid diet for now. EKG pending given h/o prolonged QT. Continue gentle fluids. IV Protonix daily. PRN IV Phenergan. AM labs. Replete electrolyte abnormalities PRN. Seizure Disorder: H/o grand mal seizure in 2020. No seizures since then. On lamotrigine - will continue, seizure precautions in place. Other Chronic Medical Conditions: HLD, HTN, bipolar I disorder --> Continue home meds for these specific conditions. Zepbound on hold, last dose was Saturday (10/27). DVT Prophylaxis: SQ Lovenox Code Status: FULL CODE PCP: Wale Collier DO Disposition: Observation in Med/Surg + Telemetry Patient seen in collaboration with Dr. Flores. Please see addendum. I spent a total of 45 minutes coordinating, documenting, and providing care for this patient excluding time spent in the performance of separately billed services. This included personally reviewing all current laboratories and imaging studies, medical reconciliation, outpatient chart review and discussion with specialists. This chart was completed in part utilizing Speech Voice Recognition Software. Grammatical errors, random word insertions, pronoun errors, and incomplete sentences are an occasional consequence of this system due to software limitations, ambient noise, and hardware issues. Any formal questions or concerns about the content, text, or information contained within the body of this dictation should be directly addressed to the provider for clarification. History of Present Illness Chief Complaint: Intractable N/V Primary Care Provider: Wale Collier DO Jovani Daley is a 43y/o F with PMHx of migraine with aura, bipolar I disorder, seizure disorder and other problems listed below who presented to the ED for evaluation secondary to intractable nausea/vomiting. History obtained from patient and associated chart review. Patient with intractable nausea/vomiting since earlier this morning - had approximately 7 or 8 episodes of vomiting so far. Had an episode of red-tinged vomiting in the ED, was given Protonix bolus. S/p the following in the ED: 2L NSS, IV Protonix bolus, 75mg IV Benadryl, 5mg IV metoclopramide and IV Compazine x 2. Denies any fevers or chills. No SOB or chest pain. Some generalized abdominal soreness as a result of retching repeatedly. She smokes marijuana daily, usually 2x/day. Rare alcohol use. No cigarette use or other recreational drug use. She is on Zepbound for weight loss, no history of diabetes. Does have history of prolonged QT syndrome. Alere has not worked for her in the past. Allergies Allergy/AdvReac Type Severity Reaction Status Date / Time ondansetron [From Zofran] Allergy Severe Long QT Unverified 10/31/23 13:33 Syndrome Bactrim Allergy Unknown Unknown. Verified 10/26/12 20:56 sulfamethoxazole [Bactrim] Allergy Unknown Unknown. Verified 10/31/23 13:33 trimethoprim [Bactrim] Allergy Unknown Unknown. Verified 10/31/23 13:33 Home Medications Medication Instructions Recorded Confirmed Type sertraline 100 mg tablet 200 mg PO QAM 04/18/20 10/31/23 History atorvastatin 40 mg tablet 40 mg PO QAM 07/13/23 10/31/23 History biotin 5,000 mcg sublingual tablet 5,000 mcg sublingual DAILY 10/31/23 10/31/23 History lamotrigine 200 mg tablet 200 mg PO BID 10/31/23 10/31/23 History tirzepatide (weight loss) 2.5 2.5 mg subcut WK 10/31/23 10/31/23 History mg/0.5 mL subcutaneous pen injector (Zepbound) Past Med/Surg History Problem List Intractable nausea and vomiting Bipolar disorder Seizure disorder Medical History Grand mal seizure In 2020 - on lamotrigine. Migraines Anxiety Surgical History No pertinent past surgical history Family History Other Family history non-contributory Social History Smoking Status: Never smoker Tobacco Type: Cigarettes Hx Alcohol Use: No Hx Substance Use: Yes Prescribed Medications: Marijuana Preferred Language: French Feels Safe at Home: Yes Review of Systems Review of Systems: At least ten systems reviewed and negative, except as noted in the HPI. Physical Exam Physical Exam: General: WD/WN, vitals as above, NAD, laying down in bed, pleasant, conversing, appears sleepy. A+Ox3, euthymic affect. HEENT: Normocephalic, atraumatic. PERRL, conjunctivae normal, anicteric sclerae. External ear and nose normal, oropharynx sightly dry. Respiratory: Normal respiratory effort, lungs clear to auscultation, no wheeze, rales, rhonchi. No accessory muscle use. Cardiovascular: Regular rate, rhythm, no murmur, normal peripheral pulses, no BLE edema. Vessels: No JVD. Abdomen/GI: Normal bowel sounds, soft, mild generalized tenderness, no hepatosplenomegaly. Extremities/Musculoskeletal: No cyanosis or clubbing, extremities motor strength intact, moves all extremities. Neurologic: EOMI, accommodation nl, no face palsy, no dysarthria, CN's II-XI not formally tested but appear grossly intact bilaterally. Skin: No rashes, normal color, warm/dry. Results & Data Results & Data Vital Signs (Past 12 Hours) Vital Signs Temp Pulse Pulse Resp BP BP Pulse Ox 10/31/23 15:00 89 16 121/80 98 10/31/23 11:43 72 20 118/81 96 10/31/23 11:09 36 C L 116 H 16 116/81 98 O2 Del Method 10/31/23 15:00 Room Air 10/31/23 11:43 Room Air 10/31/23 11:09 Room Air Laboratory Results Short CBC 10/31/23 Range/Units 11:35 WBC 7.64 (4.8-10.8) K/ul Hgb 14.6 (12.0-16.0) g/dl Hct 43.6 (37.0-47.0) % Plt Count 257 (130-400) K/uL BMP 10/31/23 11:35 Sodium 136 Potassium 3.5 Chloride 100 Carbon Dioxide 22 BUN 15 Creatinine 0.86 Glucose 124 H Calcium 9.8 Liver Function 10/31/23 Range/Units 11:35 Total Bilirubin 0.5 (0.2-1.0) mg/dl Direct Bilirubin 0.1 (0-0.2) mg/dl AST 12 L (13-39) U/L ALT 7 (7-52) U/L Alkaline Phosphatase 55 (34-104) U/L Albumin 4.9 (3.4-5.0) gm/dl Urine 10/31/23 Range/Units 13:44 Urine Color Yellow Urine Appearance Clear (Clear) Urine pH 5.5 (4.5-7.5) Ur Specific [place] 1.030 (1.000-1.030) Urine Protein Trace H (Negative) Urine Glucose (UA) Negative (Negative) Diagnostic Findings KUB X-Ray 10/31/23 14:58 KUB HISTORY: Acute nausea with vomiting persistent emesis COMPARISON: CT 07/13/2023 FINDINGS: Nonobstructive bowel gas pattern. No renal calculi. No ureteral calculi. No pneumoperitoneum or pneumatosis. No fracture. IMPRESSION: Nonobstructive bowel gas pattern. ACT 112: Negative or not required by law. The above report was generated using voice recognition software. It may contain grammatical, syntax or spelling errors. Electronically signed by: Santosh Pastor M.D. 10/31/2023 3:20 PM Medications Administered Discontinued Medications Diphenhydramine HCl (Diphenhydramine 50 Mg/Ml Vial) 50 mg IV NOW STA Stop: 10/31/23 11:19 Last Admin: 10/31/23 11:32 Dose: 50 mg Documented By: BHAVESH Diphenhydramine HCl (Diphenhydramine 50 Mg/Ml Vial) 25 mg IV NOW STA Stop: 10/31/23 14:07 Last Admin: 10/31/23 14:23 Dose: 25 mg Documented By: BHAVESH Prochlorperazine (Compazine) 1 mls @ 1 mls/min IV ONE ONE Stop: 10/31/23 11:19 Last Admin: 10/31/23 11:31 Dose: 1 mls/min Documented By: BHAVESH Sodium Chloride (Nss) 1,000 mls @ 999 mls/hr IV .Q1H1M ONE Stop: 10/31/23 12:18 Last Infusion: 10/31/23 13:16 Dose: Infused Documented By: Admin: 10/31/23 11:32 Dose: 999 mls/hr Documented By: BHAVESH Prochlorperazine (Compazine) 1 mls @ 1 mls/min IV ONE ONE Stop: 10/31/23 12:58 Last Admin: 10/31/23 13:07 Dose: 1 mls/min Documented By: VIK Sodium Chloride (Nss) 1,000 mls @ 999 mls/hr IV .Q1H1M ONE Stop: 10/31/23 15:06 Last Infusion: 10/31/23 15:56 Dose: Infused Documented By: Admin: 10/31/23 14:31 Dose: 999 mls/hr Documented By: BHAVESH Pantoprazole Sodium 80 mg/ (Dextrose) 120 mls @ 480 mls/hr IV ONE STA Stop: 10/31/23 15:12 Last Admin: 10/31/23 15:50 Dose: 480 mls/hr Documented By: NOA Metoclopramide HCl (Metoclopramide Hcl Inj 5 Mg/Ml 2 Ml Vial) 5 mg IV ONE ONE Stop: 10/31/23 14:07 Last Admin: 10/31/23 14:24 Dose: 5 mg Documented By: BHAVESH Code Status & VTE Plan Code Status FULL CODE Supervising Physician Co-Signing Physician Notes Patient is a 43-year-old female with history of bipolar disorder, seizure disorder and other medical problems presents with history of intractable nausea, vomiting. Patient also states having some abdominal discomfort secondary to significant vomiting. She admits to use marijuana on daily basis but denies any other illicit drugs. She believes that her nausea is secondary to tirzepatide and not due to marijuana use. Please review HPI for complete details of presentation. I personally reviewed blood work and imaging studies. KUB not contributory. Lipase within normal limits. Tox screen currently pending. Physical Exam: Vitals signs as noted above General Appearance:Moderately built and nourished, no apparent distress Head: normocephalic, Atraumatic Eyes: normal inspection, EOMI Neck: supple, Trachea midline Respiratory/Chest: Normal breath sounds, CTA, No accessory muscle use Cardiovascular: S1, S2, No murmur Abdomen/GI:Soft, mild generalized tender, Bowel sounds present Extremities/Musculoskeletal:normal inspection, no edema Neurologic/Psych:AAOX3, grossly no focal neurological deficits Skin: normal color, warm Intractable nausea, vomiting Dehydration secondary to above Likely secondary to Tirzepatide THC use likely contributing as well Talk screen pending Gentle IV fluids Clear liquid diet, advance as tolerated Will consider Emend Antiemetics as needed I personally interviewed and examined at bedside. Patient's care is coordinated with Rosy Nieto PA-C. I have reviewed the advanced practitioner's documentation, and I agree with plan of care. Please refer to the documentation above for details of patient's presentation and for discussion of other issues. I spent a total of29 minutes coordinating, documenting, and providing care for this patient excluding time spent in the performance of separately billed services.
[2023-10-31] MEDS: NSS + 20MEQ KCL 20 MEQ/1,000 ML BAG IV SCH (19:04)
[2023-10-31 20:04] LABS: Amphetamines+Metham, Urine Neg (Neg); Barbiturates, Urine Neg (Neg); Benzodiazepine, Urine Neg (Neg); Cocaine, Urine Neg (Neg); Fentanyl, Urine Neg (Neg); MDMA (Ecstacy), Urine Neg (Neg); Marijuana, Urine Pos (Neg); Methadone, Urine Neg (Neg); Opiate, Urine Neg (Neg); Phencyclidine, Urine Neg (Neg)
[2023-10-31] MEDS: ENOXAPARIN INJ 40 MG/0.4 ML SYR SQ SCH (20:19)
[2023-10-31] MEDS: PROMETHAZINE 6.25 MG/50.25 ML BAG IV PRN (20:19)
[2023-10-31] MEDS: lamoTRIgine 100 MG TAB PO SCH (21:23)
[2023-11-01 06:25] LABS: Hematocrit (blood only) 38.3 % (37.0-47.0); Hemoglobin 12.7 g/dl (12.0-16.0); Mean Corpuscular Hemoglobin 29.7 pg (25.0-34.0); Mean Corpuscular Hgb Conc 33.2 g/dL (32.0-36.0); Mean Corpuscular Volume 89.5 fL (80.0-100.0); Mean Platelet Volume 9.5 fL (9.4-12.4); Platelet Count 225 K/uL (130-400); RDW Coefficient of Variation 13.2 % (11.5-14.5); RDW Standard Deviation 43.4 fL (36.4-46.3); Red Blood Count 4.28 M/uL (4.20-5.40)
[2023-11-01 06:40] LABS: BUN Creatinine Ratio 11.8 (10-20); Calcium 8.3 mg/dl (8.6-10.3); Creatinine Clr Calc Pharmacy 98.7 ml/min; Est GFR (African American) 122.4 ml/min; Est GFR (Non-African American) 105.6 ml/min; Magnesium 1.9 mg/dl (1.7-2.4); Phosphorus 2.2 mg/dl (2.5-4.9); Potassium 3.9 mmol/L (3.5-5.1)
[2023-11-01] MEDS: ATORVASTATIN 40 MG TAB PO SCH (08:09)
[2023-11-01] MEDS: SERTRALINE HCL 100 MG TABLET PO SCH (08:10)
[2023-11-01 08:18] VITALS: RESP 18
[2023-11-01] MEDS: POT PHOSPHATE MONOBASIC W/ SOD TAB PO SCH (08:31)
[2023-11-01] MEDS: ACETAMINOPHEN 500 MG TAB PO PRN (08:57)
--- NOTE | 2023-11-01 08:57 | Electrocardiogram Report ---
Test Reason : Blood Pressure : */* mmHG Vent. Rate : 83 BPM Atrial Rate : 83 BPM P-R Int : 164 ms QRS Dur : 86 ms QT Int : 400 ms P-R-T Axes : 69 60 63 degrees QTcB Int : 470 ms Normal sinus rhythm T wave abnormality, consider anterior ischemia Abnormal ECG When compared with ECG of 03-Oct-2022 11:57, No significant change was found Confirmed by Efrain Vinson ([id number]) on 11/01/2023 8:56:37 AM Referred By: REFERRED SELF Confirmed By: Efrain Vinson
[2023-11-01] MEDS: PANTOprazole 40 MG in SYRINGE 0 ML IV SCH (10:26)
[2023-11-01 11:27] VITALS: BP 121/78; TEMP 98.6; O2SAT 96
--- NOTE | 2023-11-01 17:19 | Hospitalist Progress Note ---
Date of Service November 01, 2023 delayed entry date of service noted above Assessment & Plan (1) Intractable nausea and vomiting: Irene Daley is a 43y/o F with PMHx of migraine with aura, bipolar I disorder, seizure disorder and other problems listed below who presented to the ED for evaluation secondary to intractable nausea and vomiting. S/p the following in the ED: 2L NSS, IV Protonix bolus, 75mg IV Benadryl, 5mg IV metoclopramide and IV Compazine x 2. Intractable Nausea/Vomiting Dehydration History as per HPI and above. Labs rather unremarkable. UA negative for infection. KUB x-ray: IMPRESSION: Nonobstructive bowel gas pattern. Patient attributes symptoms to being behind with water intake States she has been tolerating there is appetite for a few weeks now Patient given supportive care, diet advanced gradually GI symptoms resolved Requesting to be discharged PCP follow-up in 1 week Seizure Disorder: H/o grand mal seizure in 2020. No seizures since then. On lamotrigine - will continue, seizure precautions in place. Other Chronic Medical Conditions: HLD, HTN, bipolar I disorder --> Continue home meds for these specific conditions. Zepbound on hold, last dose was Saturday (10/27). DVT Prophylaxis: SQ Lovenox Code Status: FULL CODE PCP: Wale Collier DO Disposition: DC home PCP follow-up in 1 Admission and Anticipated Discharge Date Admission Date: October 31, 2023 Subjective Follow-up for nausea vomiting, etc. Seen resting in bed, comfortable, not distressed States she feels better overall Nausea has resolved No abdominal pain No fevers or chills No chest pain, palpitations, dizziness No other new symptoms Attributes symptoms to being dehydrated for 3 days as she was exiting with her friend who is water filter was not functioning Reassess in the afternoon Patient remains stable, no GI symptoms She is requesting to be discharged Review of Systems Review of Systems: all noted and negative except for above Physical Exam Physical Exam: General- oriented x 3, not in distress, speaks in sentences with no effort or accessory muscle use Eyes- anicteric Neck- no JVD Lungs- clear breath sounds bilaterally, no rales/wheezes Heart- normal rate, regular rhythm; no murmurs Abdomen- normal bowel sounds, nondistended, soft, nontender Extremities- no pretibial edema, no calf tenderness Neuro- alert, oriented x 3; no gross focal neurologic deficits Skin- warm & dry Results & Data Results & Data Vital Signs (Past 12 Hours) Vital Signs Temp Pulse Pulse Resp BP Pulse Ox O2 Del Method 11/01/23 13:45 96 H 11/01/23 11:26 37.0 C 67 18 121/78 96 Room Air 11/01/23 08:17 36.8 C 93 H 18 98/62 L 98 Room Air 11/01/23 07:03 93 H all noted and reviewed including below
[2023-11-01 18:05] VITALS: PULSE 74
[2023-11-03 12:13] LABS: Marijuana Quant, GCMS Urine 703 ng/mL (<5)
--- NOTE | 2023-11-03 18:28 | Discharge Summary ---
Discharge Summary Date of Service November 03, 2023 delayed entry date of service 11/01/2023 Principal Dx & Hospital Course #1 = Principal Diagnosis (1) Intractable nausea and vomiting: Plan Jovani Daley is a 43y/o F with PMHx of migraine with aura, bipolar I disorder, seizure disorder and other problems listed below who presented to the ED for evaluation secondary to intractable nausea and vomiting. S/p the following in the ED: 2L NSS, IV Protonix bolus, 75mg IV Benadryl, 5mg IV metoclopramide and IV Compazine x 2. Intractable Nausea/Vomiting Dehydration History as per HPI and above. Labs rather unremarkable. UA negative for infection. KUB x-ray: IMPRESSION: Nonobstructive bowel gas pattern. Patient attributes symptoms to being behind with water intake States she has been tolerating there is appetite for a few weeks now Patient given supportive care, diet advanced gradually GI symptoms resolved Requesting to be discharged PCP follow-up in 1 week Seizure Disorder: H/o grand mal seizure in 2020. No seizures since then. On lamotrigine - will continue, seizure precautions in place. Other Chronic Medical Conditions: HLD, HTN, bipolar I disorder --> Continue home meds for these specific conditions. Zepbound on hold, last dose was Saturday (10/27). DVT Prophylaxis: SQ Lovenox Code Status: FULL CODE PCP: Wale Collier DO Disposition: [place] home PCP follow-up in 1 Notes For Next Care Provider Medication Changes From Visit None Admission HPI Per Admitting Provider Jovani Daley is a 43y/o F with PMHx of migraine with aura, bipolar I disorder, seizure disorder and other problems listed below who presented to the ED for evaluation secondary to intractable nausea/vomiting. History obtained from patient and associated chart review. Patient with intractable nausea/vomiting since earlier this morning - had approximately 7 or 8 episodes of vomiting so far. Had an episode of red-tinged vomiting in the ED, was given Protonix bolus. S/p the following in the ED: 2L NSS, IV Protonix bolus, 75mg IV Benadryl, 5mg IV metoclopramide and IV Compazine x 2. Denies any fevers or chills. No SOB or chest pain. Some generalized abdominal soreness as a result of retching repeatedly. She smokes marijuana daily, usually 2x/day. Rare alcohol use. No cigarette use or other recreational drug use. She is on Zepbound for weight loss, no history of diabetes. Does have history of prolonged QT syndrome. Alisha has not worked for her in the past. Admission Exam Per Admitting Provider General: WD/WN, vitals as above, NAD, laying down in bed, pleasant, conversing, appears sleepy. A+Ox3, euthymic affect. HEENT: Normocephalic, atraumatic. PERRL, conjunctivae normal, anicteric sclerae. External ear and nose normal, oropharynx sightly dry. Respiratory: Normal respiratory effort, lungs clear to auscultation, no wheeze, rales, rhonchi. No accessory muscle use. Cardiovascular: Regular rate, rhythm, no murmur, normal peripheral pulses, no BLE edema. Vessels: No JVD. Abdomen/GI: Normal bowel sounds, soft, mild generalized tenderness, no hepatosplenomegaly. Extremities/Musculoskeletal: No cyanosis or clubbing, extremities motor strength intact, moves all extremities. Neurologic: EOMI, accommodation nl, no face palsy, no dysarthria, CN's II-XI not formally tested but appear grossly intact bilaterally. Skin: No rashes, normal color, warm/dry. Discharge Exam General- oriented x 3, not in distress, speaks in sentences with no effort or accessory muscle use Eyes- anicteric Neck- no JVD Lungs- clear breath sounds bilaterally, no rales/wheezes Heart- normal rate, regular rhythm; no murmurs Abdomen- normal bowel sounds, nondistended, soft, nontender Extremities- no pretibial edema, no calf tenderness Neuro- alert, oriented x 3; no gross focal neurologic deficits Skin- warm & dry Updated Medication List Medication Instructions Recorded Confirmed Type sertraline 100 mg tablet 200 mg PO QAM 04/18/20 11/03/23 History atorvastatin 40 mg tablet 40 mg PO QAM 07/13/23 11/03/23 History biotin 5,000 mcg sublingual tablet 5,000 mcg sublingual DAILY 10/31/23 11/03/23 History lamotrigine 200 mg tablet 200 mg PO BID 10/31/23 11/03/23 History pantoprazole 40 mg tablet,delayed 40 mg PO DAILY 14 days #14 tabs 11/01/23 11/03/23 Rx release (Protonix) dicyclomine 20 mg tablet 20 mg PO QID #20 tabs 11/03/23 Rx promethazine 25 mg tablet 25 mg PO Q6H PRN nausea and 11/03/23 Rx vomiting #14 tabs sucralfate 100 mg/mL oral 10 ml PO QID #420 mL 11/03/23 Rx suspension (Carafate) Hospital Stay Data Consultations 10/31/23 16:06 ED Decision to Admit Stat Diagnostic Imagining Performed KUB HISTORY: Acute nausea with vomiting persistent emesis COMPARISON: CT 07/13/2023 FINDINGS: Nonobstructive bowel gas pattern. No renal calculi. No ureteral calculi. No pneumoperitoneum or pneumatosis. No fracture. IMPRESSION: Nonobstructive bowel gas pattern. ACT 112: Negative or not required by law. The above report was generated using voice recognition software. It may contain grammatical, syntax or spelling errors. Electronically signed by: Santosh Pastor M.D. 10/31/2023 3:20 PM Pending Results Patient Have Any Pending Studies at Discharge: No Discharge Instructions Given to Patient (Per Discharging Provider) PLEASE REFER TO YOUR NEW MEDICATION LIST AND FOLLOW INSTRUCTIONS CAREFULLY. YOUR NEW MEDICATIONS INCLUDE: Protonix- antacid, take at least 30 minutes before breakfast PLEASE CALL YOUR PRIMARY CARE PHYSICIAN OR RETURN TO THE ER IF WITH WORSENING OF SYMPTOMS, INCLUDING abdominal pain , nausea/vomiting, fever/chills, diarrhea, etc FOLLOW UP WITH PRIMARY CARE PHYSICIAN IN 1 WEEK. THE CLINIC WILL CALL YOU SOON FOR THE APPOINTMENT. Total Time Total Time Spent Total Time Spent (In Minutes): 40 minutes
== END 2023-11-01 18:43 | disposition home or self-care (01) ==
LOC: ED 11:04 → 2N 11:04 → SUATTDRO 16:14 → 2N 17:33